=== PATIENT | female | born 1985 ===

== ENCOUNTER → 2018-04-04 | Day surgery (SDC) | payer OTHER ==
[2018-04-04] VITALS (10 sets, daily range): BP systolic 102–131; BP diastolic 46–72
[~2018-04-04] VITALS: Ht 154.9 cm; Wt 52.2 kg
[~2018-04-04] MED LIST: Atropine Sulfate 0.4mg/ml inj IVP PRN; Bupivacaine w/Epi 0.25% 30ml Vial INJ ONE; D5 1/2NS 1,000 ML IV SCH; Dexamethasone 4mg/ml vial ONE; DiphenhydrAMINE 50mg/ml Inj IVP PRN; EPINEPHrine 1mg/1ml Amp ONE; HYDROcodone/Acetamin 7.5/325 tab ORAL PRN; HYDROmorphone 1mg/ml Carpuject SUBQ PRN; Hydromorphone 0.5mg/0.5ml inj IVP PRN; Kenalog-40 1ml Vial ONE; Ketorolac 30mg Inj IV PRN; Ketorolac 30mg Inj ONE; LORazepam Inj 2mg/ml 1ml IV PRN; LR 1000ml 1,000 ML IVLG SCH; LR 1000ml ONE; Lidocaine 1% MPF 10mg/ml 5ml ONE; Meperidine 50mg/ml Inj(FOR RIGORS ONLY) IVP PRN; Metoclopramide 10mg/2ml Inj IVP PRN; Metoprolol 5mg/5ml Inj ONE; Midazolam 2mg/2ml Inj IVP PRN; NKM; NS Irrig 4000ml IRRIG ONE; Norco 5mg/325mg tab ORAL PRN; Propofol 200mg/20ml IV ONE; Ropivacaine 5mg/ml Vial 30ml INJ ONE; Tylenol #3 tab (300mg/30mg) ORAL PRN; ceFAZolin 1gm IVPB IVPB ONE; celeBREX 200mg Cap **SURGERY PATIENTS ONLY ORAL ONE; fentaNYL 100 mcg/2 mL IV PRN; oxyCODONE HCL/Acetaminophen 5/325mg ORAL PRN; oxyCONTIN 20mg tab ORAL ONE
--- NOTE | 2018-04-04 09:25 | Anethesia Preoperative Eval ---
Anesthesia Pre-op PMH/ROS General Date of Evaluation: Apr 04, 2018 Time of Evaluation: 09:19 Anesthesiologist: Mary ASA Score: ASA 1 Mallampati Score Class I : Soft palate, uvula, fauces, pillars visible Class II: Soft palate, uvula, fauces visible Class III: Soft palate, base of uvula visible Class IV: Only hard plate visible Mallampati Classification: Class I Surgeon: Mason Diagnosis: R Shoulder Pain Surgical Procedure: R Shoulder Arthroscopy Anesthesia History: none Family History: no anesthesia problems Allergies: Coded Allergies: Pork (Verified Allergy, Severe, 04/04/18) THROAT CLOSES UP Medications: see eMAR Patient NPO?: Yes Anesthesia Pre-op Phys. Exam Physician Exam Constitutional: NAD Neurologic: CN 2-12 intact Cardiovascular: RRR Respiratory: CTA Gastrointestinal: S/NT/ND Airway Exam Mallampati Score: Class I MO: full ROM: full Teeth: intact Anesthesia Pre-op A/P Labs Urine Test Test 04/04/18 04:40 Urine HCG, Qualitative Negative (NEGATIVE) Risk Assessment & Plan Assessment: ASA 1 Plan: GA, SED, GlideScope Go Status Change Before Surgery: Yes Pre-Antibiotics Dru Gram Ancef IV Given Within 1 Hr of Incision: Yes Time Given: 09:46 David Hernandez MD Apr 04, 2018 09:25
--- NOTE | 2018-04-04 09:55 | Operative Note - PDOC ---
Operative Note Operative Note Pre-op Diagnosis: right shoulder internal derangment, impingement Procedure: see op report Post-op Diagnosis: same as pre-op plus Operative Findings: consistent w/pre-op dx studies Anesthesia: regional Specimen: none Complications: none Condition: stable Estimated Blood Loss: none Implant(s) used?: No Altaf Cuevas MD Apr 04, 2018 09:55
--- NOTE | 2018-04-04 09:55 | Pre-Procedure Note/Attestation ---
Pre-Procedure Note/Attestation Complete Prior to Procedure Planned Procedure: right Procedure Narrative: shoulder arthroscopy, sad Indications for Procedure Pre-Operative Diagnosis: right shoulder internal derangment, impingement Attestation I attest that I discussed the nature of the procedure; its benefits; risks and complications; and alternatives (and the risks and benefits of such alternatives ), prior to the procedure, with the patient (or the patient's legal roofing sales representative). I attest that, if there was a reasonable possibility of needing a blood transfusion, the patient (or the patient's legal roofing sales representative) was given the [facility] standardized written summary, pursuant to the [place] Blood Safety Act ([place] Health and Safety Code # 1645, as amended). I attest that I re-evaluated the patient just prior to the surgery and that there has been no change in the patient's H&P, except as documented below: Altaf Cuevas MD Apr 04, 2018 09:55
--- NOTE | 2018-04-04 10:06 | Immediate Post-Op Evaluation ---
Immediate Post-Op Evalulation Immediate Post-Op Evalulation Procedure: R Shoulder Arthroscopy Date of Evaluation: Apr 04, 2018 Time of Evaluation: 11:02 IV Fluids: 800 LR Blood Products: 0 Estimated Blood Loss: 4 Urinary Output: 0 Blood Pressure Systolic: 107 Blood Pressure Diastolic: 49 Pulse Rate: 86 Respiratory Rate: 16 O2 Sat by Pulse Oximetry: 99 Temperature (Fahrenheit): 99.4 Pain Score (1-10): 1 Nausea: No Vomiting: No Complications 0 Patient Status: awake, reacts, patent, none Hydration Status: adequate Dru Gram Ancef IV Given Within 1 Hr of Incision: Yes Time Given: 07:46 David Hernandez MD Apr 04, 2018 10:06
--- NOTE | 2018-04-04 10:12 | 48 Hour Post Anesthesia Eval ---
Post Anesthesia Evaluation Procedure: R Shoulder Arthroscopy Date of Evaluation: Apr 04, 2018 Time of Evaluation: 13:11 Blood Pressure Systolic: 106 0: 53 Pulse Rate: 87 Respiratory Rate: 18 Temperature (Fahrenheit): 98.6 O2 Sat by Pulse Oximetry: 100 Airway: patent Nausea: No Vomiting: No Pain Intensity: 1 Hydration Status: adequate Cardiopulmonary Status: Stable Mental Status/LOC: patient returned to baseline Follow-up Care/Observations: 0 Post-Anesthesia Complications: 0 Follow-up care needed: ready to discharge David Hernandez MD Apr 04, 2018 10:12
--- NOTE | 2018-04-04 21:00 | Operative Note - Dictated ---
DATE OF OPERATION: 04/04/2018 POSTOPERATIVE DIAGNOSES: 1. Right shoulder partial rotator cuff tear. 2. Right shoulder biceps tendonitis. 3. Impingement syndrome. POSTOPERATIVE DIAGNOSES: 1. Right shoulder partial rotator cuff tear. 2. Right shoulder biceps tendonitis. 3. Impingement syndrome. PROCEDURES: 1. Right shoulder diagnostic arthroscopy extensive intra-articular debridement. 2. Right shoulder subacromial decompression bursectomy release of CA ligament. SURGEON: Altaf Cuevas M.D. ANESTHESIA: Interscalene with general. INDICATION FOR PROCEDURE: The patient is a pleasant female, who has had significant right shoulder pain. She has failed conservative treatment. She had an MRI, which showed a possible tear of the rotator cuff as well as possible tenosynovitis along the biceps tendon. She failed conservative treatment and elected to undergo right shoulder diagnostic arthroscopy and possible repair versus debridement of rotator cuff tear with concurrent decompression bursectomy. Risks, limitations, expectations, and complications of the procedure were discussed in detail. All questions addressed. DESCRIPTION OF PROCEDURE: After informed consent was obtained, the patient was brought to the operating room. The patient was placed under interscalene general anesthesia. The patient was then carefully placed in beach-chair position. Right shoulder was prepped and draped in a sterile manner. Time-out was performed. A posterolateral stab incision was then made. Trocar was introduced into the glenohumeral joint. There was no chondral damage. The anterior labrum appeared to be intact. The subscapularis was intact. The biceps tendon had no significant erythema. No gross subluxation. The undersurface of the rotator cuff was intact. At this point, the camera was placed in the subacromial space. There was hypertrophic bursal tissue making visualization of the undersurface of the acromion difficult. The bursectomy was performed. Once the undersurface of the acromion was identified, acromioplasty was started from lateral to medial and then completed from posterior to anterior. Once that was done, the bursectomy was completed in the posterior axis of the shoulder. At that point, the bursal side of the rotator cuff was evaluated. It was noted to be intact. Therefore, instruments removed. Portal sites were closed with 3-0 Monocryl sutures. Steri-Strips and sterile dressing was applied. The patient was awoken and taken to recovery room with stable vital signs. ESTIMATED BLOOD LOSS: None. COMPLICATIONS: None. SPECIMENS: None. IMPLANTS: None. Altaf Cuevas M.D. DR: SUZETTE JOB#: [id number] CC:
== END | disposition home or self-care (01) ==
LOC: SUR 08:19
DX: M75.111 Incomplete rotator cuff tear or rupture of right shoulder, not specified as traumatic (principal); M75.21 Bicipital tendinitis, right shoulder; M75.41 Impingement syndrome of right shoulder; Z91.018 Allergy to other foods
CPT/HCPCS: 29823; 29826; 81025; J0171; J0690; J1100; J1885; J2250; J2405; J2704; J2795; J3301; 94003; 94150